=== PATIENT | male | born 1970 | race Caucasian/White ===

== ENCOUNTER 2024-09-30 09:20 | Day surgery (SDC) | payer BC ==
[2024-09-26 09:39] LABS: BASOPHILS % (AUTO) 0.2 % (0-1); EOSINOPHILS # (AUTO) 0.1 X10'3 (0-0.9); EOSINOPHILS % (AUTO) 1.3 % (0-6); HEMOGLOBIN 15.6 g/dl (14.0-17.9); LYMPHOCYTES # (AUTO) 1.6 X10'3 (1.1-4.8); LYMPHOCYTES % (AUTO) 38.6 % (21-51); MEAN CORPUSCULAR HEMOGLOBIN 31.7 PG (27.0-31.0); MEAN CORPUSCULAR HGB CONC 35.4 g/dL (33.0-36.5); MEAN CORPUSCULAR VOLUME 89.4 FL (78-98); MEAN PLATELET VOLUME 6.7 FL (7.4-10.4); MONOCYTES # (AUTO) 0.4 X10'3 (0-0.9); MONOCYTES % (AUTO) 9.2 % (2-12); NEUTROPHILS # (AUTO) 2.1 X10'3 (1.8-7.7); NEUTROPHILS % (AUTO) 50.7 % (42-75); PLATELET COUNT 178 X10'3 (140-440); RED BLOOD COUNT 4.92 X10'6 (4.70-6.10); RED CELL DISTRIBUTION WIDTH 12.7 % (11.5-14.5); WHITE BLOOD COUNT 4.2 X10'3 (4.5-11.0)
[2024-09-26 09:49] LABS: ANION GAP 3 (8-16); APTT 28 SECONDS (22-32); BLOOD UREA NITROGEN 14 MG/DL (7-18); BUN/CREATININE RATIO 13.6 (10.0-20.0); CALCIUM 8.4 MG/DL (8.5-10.1); CHLORIDE 103 MMOL/L (99-107); CHOL/HDL RATIO 4.6 (0.00-4.99); CHOLESTEROL 175 MG/DL (0-200); CREATININE 1.03 MG/DL (0.60-1.10); GLUCOSE 91 MG/DL (70-104); HDL CHOLESTEROL 38 MG/DL (35-60); LDL CHOLESTEROL 115 MG/DL (50-100); PROTHROMBIN TIME 10.7 SECONDS (9.0-12.0); SODIUM 137 MMOL/L (135-145); TOTAL CARBON DIOXIDE 30.6 MMOL/L (24-32); TRIGLYCERIDES 130 MG/DL (20-135); eGFR 76 ML/MIN
[2024-09-30] VITALS (10 sets, daily range): BP systolic 110–122; BP diastolic 75–89; PULSE 80–100; RESP 14–18; TEMP 98.6; O2SAT 20–99
[~2024-09-30] VITALS: Ht 170.2 cm; Wt 90.6 kg
[2024-09-30] MEDS ORDERED: diphenhydrAMINE 25mg capsule PO ONE (09:45)
[2024-09-30] MEDS ORDERED: ROSU20TA98 PO (09:54)
[2024-09-30] MEDS ORDERED: METO25TA6 PO (09:54)
[2024-09-30] MEDS ORDERED: IBUP-2697 PO (10:01)
[2024-09-30] MEDS ORDERED: NITR0.4T48 SL (10:01)
[2024-09-30] MEDS ORDERED: ASPI-1265 PO (10:01)
[2024-09-30] MEDS ORDERED: ACET-1008 PO (10:01)
[2024-09-30] MEDS ORDERED: LIDOcaine 1% (10mg/ml) 2ml vial ONE (11:58)
[2024-09-30] MEDS ORDERED: verapamil 2.5 mg/ml inj IV ONE (11:58)
[2024-09-30] MEDS ORDERED: nitroGLYCERIN 500mcg/5mL D5W 5 ML IV ONE (11:59)
[2024-09-30] MEDS ORDERED: midazolam 1 mg/ML 2ml injection ONE (11:59)
[2024-09-30] MEDS ORDERED: iohexol 350MG/ML 100ml bottle IV ONE (11:59)
[2024-09-30] MEDS ORDERED: fentaNYL/PF 50MCG/1 ML 2ML syringe ONE (11:59)
[2024-09-30] MEDS ORDERED: heparin 1,000unit/ml 10ml vial 10 ML ONE (11:59)
[2024-09-30] MEDS: normal saline 1000ml 1,000 ML IV SCH (12:16)
[2024-09-30] MEDS: LORazepam 0.5 MG tablet PO ONE (12:16)
[2024-09-30] MEDS ORDERED: iohexol 350 MG/ML 50ML vial IV ONE (12:58)
[2024-09-30] MEDS ORDERED: HYDROcodone/acetaminophen 5mg/325mg tablet PO PRN (13:40)
[2024-09-30] MEDS ORDERED: HYDROcodone/acetaminophen 10/325mg tab PO PRN (13:40)
== END 2024-09-30 16:25 | disposition home or self-care (01) ==
LOC: SSTAY O 09:20
PROVIDERS: ATTEND Student in an Organized Health Care Education/Training Program
DX: R94.39 Abnormal result of other cardiovascular function study (principal); I25.110 Atherosclerotic heart disease of native coronary artery with unstable angina pectoris; I25.82 Chronic total occlusion of coronary artery; I35.0 Nonrheumatic aortic (valve) stenosis; I10 Essential (primary) hypertension; E78.00 Pure hypercholesterolemia, unspecified; Z79.1 Long term (current) use of non-steroidal anti-inflammatories (NSAID); Z79.899 Other long term (current) drug therapy; Z79.82 Long term (current) use of aspirin; Z79.01 Long term (current) use of anticoagulants
CPT/HCPCS: 36415; 80048; 80061; 85025; 85610; 85730; 93005; 93458; J1644; J2003; J2250; J3010; J3490; J7030; Q9967; 99152; A6258; A6402; C1894

== ENCOUNTER 2024-10-24 05:38 | Inpatient (IN) | payer BC ==
[2024-10-22 12:52] VITALS: PULSE 105; RESP 16; O2SAT 98
[2024-10-22 14:58] LABS: BILIRUBIN,URINE NEGATIVE (Neg); CLARITY,URINE CLEAR (Clear); COLOR,URINE YELLOW (Yellow); GLUCOSE, URINE 100 mg/dl (Neg); KETONES,URINE NEGATIVE (Neg); LEUKOCYTE ESTERASE ,URINE NEGATIVE (Neg); NITRITES, URINE NEGATIVE (Neg); OCCULT BLOOD,URINE NEGATIVE (Neg); PH,URINE 6.5 (4.8-8.0); PROTEIN,URINE NEGATIVE (Neg); UROBILINOGEN,URINE 0.2 E.U/dL (0.2-1.0)
[2024-10-22 15:07] LABS: UA COLLECTION TYPE CLN CATCH MIDSTREAM
[2024-10-22 15:28] LABS: ABG BASE EXCESS -2.4 mmol/L (-2.0-3.0); ABG HCO3 20.9 mmol/L (21.0-28.0); ABG OXYGEN SATURATION 97.1 % (94.0-98.0); ABG PCO2 (T) 32.9 mmHg (35.0-48.0); ABG PH (T) 7.421 (7.350-7.450); ABG PO2 (T) 89.5 mmHg (83.0-108.0); ALLEN'S TEST POSITIVE; FCOHb 0.3 % (0.5-1.5); FHHb 2.9 % (0.0-5.0); FMetHb 0.1 % (0.0-1.5); FO2Hb 96.7 % (94.0-98.0); MODE ROOM AIR; TOTAL HEMOGLOBIN 17.3 G/dl (13.5-17.5)
[2024-10-22 15:32] LABS: BASOPHILS % (AUTO) 0.4 % (0-1); EOSINOPHILS % (AUTO) 0.4 % (0-6); LYMPHOCYTES # (AUTO) 1.6 X10'3 (1.1-4.8); LYMPHOCYTES % (AUTO) 21.7 % (21-51); MEAN CORPUSCULAR HGB CONC 34.1 g/dL (33.0-36.5); MEAN CORPUSCULAR VOLUME 90.9 FL (78-98); MEAN PLATELET VOLUME 7.3 FL (7.4-10.4); MONOCYTES # (AUTO) 0.5 X10'3 (0-0.9); MONOCYTES % (AUTO) 7.3 % (2-12); NEUTROPHILS # (AUTO) 5.2 X10'3 (1.8-7.7); NEUTROPHILS % (AUTO) 70.2 % (42-75); PRE OP HEMATOCRIT 47.7 % (42.0-52.0); PRE OP HEMOGLOBIN 16.3 g/dL (14.0-17.9); PRE OP PLATELET COUNT 192 X10'3 (140-440); PRE OP WHITE BLOOD COUNT 7.5 10'3 (4.8-10.8); RED BLOOD COUNT 5.25 X10'6 (4.70-6.10); RED CELL DISTRIBUTION WIDTH 13.2 % (11.5-14.5)
[2024-10-22 15:42] LABS: PRE OP INR 1.1 INR
[2024-10-22 15:55] LABS: ALBUMIN 4.4 G/DL (3.4-5.0); ALBUMIN/GLOBULIN RATIO 1.2 (1.1-1.5); ALKALINE PHOSPHATASE 83 IU/L (46-116); BLOOD UREA NITROGEN 19 MG/DL (7-18); BUN/CREATININE RATIO 18.8 (10.0-20.0); CHLORIDE 102 MMOL/L (99-107); CREATININE 1.01 MG/DL (0.60-1.10); PRE OP ALT 61 U/L (30-65); PRE OP ANION GAP 8 (8-16); PRE OP AST 26 U/L (10-37); PRE OP BILIRUB, TOTAL 0.6 MG/DL (0.0-1.0); PRE OP GLUCOSE 93 MG/DL (70-104); PRE OP POTASSIUM 3.9 MMOL/L (3.4-5.1); PRE OP SODIUM 139 MMOL/L (135-145); TOTAL CARBON DIOXIDE 28.7 MMOL/L (24-32); TOTAL PROTEIN 8.1 G/DL (6.4-8.2); eGFR 78 ML/MIN
[2024-10-22 15:59] LABS: HEMOGLOBIN A1C 5.2 % (4.5-6.2)
[2024-10-22] MEDS: DOCUMENT DATE & TIME OF BETA-BLOCKER PO ONE (21:00)
[2024-10-24] VITALS (17 sets, daily range): BP systolic 89–138; BP diastolic 52–87; PULSE 71–93; RESP 12–20; O2SAT 96–99
[~2024-10-24] VITALS: Ht 170.2 cm; Wt 99.3 kg
[~2024-10-24 05:38] MED LIST: ASPI-1265 PO; Insulin Reg/NS 100units/100mL 100 ML IV SCH; METO25TA6 PO; ROSU20TA98 PO; dextrose 50%-water 50ml dispensing syringe IV PRN; insulin glargine (Lantus) pen - multi-dose SQ PRN
[2024-10-24] MEDS ORDERED: BUPIVAcaine 2.5mg/ml inj 50ml vial (contains preservative) ONE (06:40)
[2024-10-24] MEDS ORDERED: ceFAZolin 1000mg inj ONE (06:40)
[2024-10-24] MEDS ORDERED: gelatin sponge, absorbable (Gelfoam 100) sponge TP ONE (06:41)
[2024-10-24] MEDS: ringers solution, lacted 1,000 ML IV SCH (06:47)
[2024-10-24] MEDS: famotidine 20mg tablet PO ONE (06:48)
[2024-10-24] MEDS: VANCOMYCIN/H2O 1.5g/300mL PB 300 ML IV ONE (06:48)
[2024-10-24] MEDS: metoprolol tartrate 12.5mg (1/2 tablet) PO ONE (06:54)
[2024-10-24] MEDS: BUPIVAcaine/PF 2.5 mg/ml (0.25%) 30ml vial IJ ONE (07:00)
[2024-10-24] MEDS ORDERED: fentaNYL /PF 50mcg/ml 5ml ampule ONE ×3 (07:46)
[2024-10-24] MEDS ORDERED: MIDAZolam 1mg/ml 10ml vial ONE (07:46)
[2024-10-24] MEDS ORDERED: LIDOcaine 1%/PF 5ML 10 MG/ML VIAL ONE (07:47)
[2024-10-24] MEDS ORDERED: propofol inj 20 ML IV ONE (07:47)
[2024-10-24] MEDS ORDERED: rocuronium 10mg/ml inj IV ONE ×6 (07:47→14:09)
[2024-10-24] MEDS: LORazepam 2 mg/ml vial IV ONE (07:58)
[2024-10-24] MEDS: mupirocin 2% ointment 22GM NS SCH (08:00)
[2024-10-24] MEDS ORDERED: sevoflurane 250ml liquid IH ONE (08:08)
[2024-10-24] MEDS: ceFAZolin inj. 3,000 MG in normal saline 100ml IV soln 100 ML IV ONE (08:09)
[2024-10-24 08:57] LABS: ABG BASE EXCESS -0.6 mmol/L (-2.0-3.0); ABG HCO3 21.4 mmol/L (21.0-28.0); ABG OXYGEN SATURATION 98.4 % (94.0-98.0); ABG PCO2 28.6 mmHg (35.0-48.0); ABG PH 7.492 (7.350-7.450); ABG PO2 123.2 mmHg (83.0-108.0); CL (ABG) 103 mmol/L (98-107); FCOHb 0.1 % (0.5-1.5); FHHb 1.6 % (0.0-5.0); FMetHb 0.2 % (0.0-1.5); FO2Hb 98.1 % (94.0-98.0); GLUCOSE (ABG) 118 mg/dl (65-95); IONIZED CA (ABG) 1.12 mmol/L (1.15-1.33); K (ABG) 3.9 mmol/L (3.40-4.50); TOTAL HEMOGLOBIN 14.4 G/dl (13.5-17.5)
[2024-10-24 10:24] LABS: ABG BASE EXCESS VENOUS -12.9 mmol/L (-2.0-3.0); ABG HCO3 VENOUS 12.1 mmol/L (22.0-29.0); ABG PCO2 VENOUS 24.7 mmHg (38.0-54.0); ABG PH (VENOUS) 7.307 (7.320-7.430); CL (ABG) 103 mmol/L (98-107); FHHb VENOUS 24.9 %; FMetHb VENOUS 0.4 % (0.5-1.5); FO2Hb VENOUS 74.7 % (0-80.0); IONIZED CA (ABG) 1.05 mmol/L (1.15-1.33); K (ABG) 4.2 mmol/L (3.40-4.50); TOTAL HEMOGLOBIN 7.9 G/dl (13.5-17.5)
[2024-10-24 11:32] LABS: ABG BASE EXCESS -1.3 mmol/L (-2.0-3.0); ABG HCO3 23.5 mmol/L (21.0-28.0); ABG OXYGEN SATURATION 97.4 % (94.0-98.0); ABG PCO2 39.8 mmHg (35.0-48.0); ABG PH 7.389 (7.350-7.450); ABG PO2 104.9 mmHg (83.0-108.0); CL (ABG) 100 mmol/L (98-107); FCOHb 0.3 % (0.5-1.5); FHHb 2.6 % (0.0-5.0); FO2Hb 97.1 % (94.0-98.0); GLUCOSE (ABG) 136 mg/dl (65-95); TOTAL HEMOGLOBIN 10.5 G/dl (13.5-17.5)
[2024-10-24 12:00] LABS: ABG BASE EXCESS -2.6 mmol/L (-2.0-3.0); ABG HCO3 23.4 mmol/L (21.0-28.0); ABG PCO2 45.1 mmHg (35.0-48.0); ABG PH 7.332 (7.350-7.450); CL (ABG) 100 mmol/L (98-107); FCOHb 0.2 % (0.5-1.5); FHHb 23.1 % (0.0-5.0); FMetHb 0.1 % (0.0-1.5); FO2Hb 76.6 % (94.0-98.0); GLUCOSE (ABG) 164 mg/dl (65-95); IONIZED CA (ABG) 1.02 mmol/L (1.15-1.33); TOTAL HEMOGLOBIN 11.4 G/dl (13.5-17.5)
[2024-10-24] MEDS ORDERED: epiNEPHrine 1 mg/ml inj ONE (12:14)
[2024-10-24 12:52] LABS: ABG BASE EXCESS -7.1 mmol/L (-2.0-3.0); ABG HCO3 19.2 mmol/L (21.0-28.0); ABG OXYGEN SATURATION 96.7 % (94.0-98.0); ABG PCO2 41.9 mmHg (35.0-48.0); ABG PO2 100.3 mmHg (83.0-108.0); CL (ABG) 102 mmol/L (98-107); FCOHb 0.3 % (0.5-1.5); FHHb 3.3 % (0.0-5.0); FMetHb 0.3 % (0.0-1.5); FO2Hb 96.1 % (94.0-98.0); GLUCOSE (ABG) 191 mg/dl (65-95); IONIZED CA (ABG) 1.05 mmol/L (1.15-1.33); K (ABG) 4.9 mmol/L (3.40-4.50); TOTAL HEMOGLOBIN 11.5 G/dl (13.5-17.5)
[2024-10-24 13:04] LABS: ABG BASE EXCESS -0.4 mmol/L (-2.0-3.0); ABG HCO3 25.3 mmol/L (21.0-28.0); ABG OXYGEN SATURATION 97.1 % (94.0-98.0); ABG PCO2 45.8 mmHg (35.0-48.0); ABG PO2 101.8 mmHg (83.0-108.0); CL (ABG) 101 mmol/L (98-107); FCOHb 0.3 % (0.5-1.5); FHHb 2.9 % (0.0-5.0); FMetHb 0.3 % (0.0-1.5); FO2Hb 96.5 % (94.0-98.0); GLUCOSE (ABG) 213 mg/dl (65-95); IONIZED CA (ABG) 0.97 mmol/L (1.15-1.33); K (ABG) 4.6 mmol/L (3.40-4.50); TOTAL HEMOGLOBIN 10.9 G/dl (13.5-17.5)
[2024-10-24 13:27] LABS: ABG BASE EXCESS -2.6 mmol/L (-2.0-3.0); ABG HCO3 21.4 mmol/L (21.0-28.0); ABG OXYGEN SATURATION 99.1 % (94.0-98.0); ABG PCO2 34.3 mmHg (35.0-48.0); ABG PH 7.413 (7.350-7.450); ABG PO2 257.9 mmHg (83.0-108.0); CL (ABG) 102 mmol/L (98-107); FCOHb 0.3 % (0.5-1.5); FHHb 0.9 % (0.0-5.0); FMetHb 0.3 % (0.0-1.5); FO2Hb 98.5 % (94.0-98.0); GLUCOSE (ABG) 216 mg/dl (65-95); K (ABG) 4.5 mmol/L (3.40-4.50); TOTAL HEMOGLOBIN 11.1 G/dl (13.5-17.5)
[2024-10-24 13:48] LABS: ABG BASE EXCESS -2.1 mmol/L (-2.0-3.0); ABG HCO3 23.3 mmol/L (21.0-28.0); ABG OXYGEN SATURATION 99.1 % (94.0-98.0); ABG PCO2 42.4 mmHg (35.0-48.0); ABG PH 7.358 (7.350-7.450); CL (ABG) 101 mmol/L (98-107); FCOHb 0.3 % (0.5-1.5); FHHb 0.9 % (0.0-5.0); FMetHb 0.3 % (0.0-1.5); FO2Hb 98.5 % (94.0-98.0); GLUCOSE (ABG) 206 mg/dl (65-95); IONIZED CA (ABG) 1.15 mmol/L (1.15-1.33); K (ABG) 4.4 mmol/L (3.40-4.50); TOTAL HEMOGLOBIN 10.3 G/dl (13.5-17.5)
[2024-10-24 14:28] LABS: ABG BASE EXCESS -4.6 mmol/L (-2.0-3.0); ABG HCO3 22.2 mmol/L (21.0-28.0); ABG OXYGEN SATURATION 98.8 % (94.0-98.0); ABG PCO2 48.6 mmHg (35.0-48.0); ABG PH 7.278 (7.350-7.450); ABG PO2 261.2 mmHg (83.0-108.0); CL (ABG) 102 mmol/L (98-107); FCOHb 0.1 % (0.5-1.5); FHHb 1.2 % (0.0-5.0); FMetHb 0.3 % (0.0-1.5); FO2Hb 98.4 % (94.0-98.0); GLUCOSE (ABG) 190 mg/dl (65-95); IONIZED CA (ABG) 1.18 mmol/L (1.15-1.33); K (ABG) 5.1 mmol/L (3.40-4.50); TOTAL HEMOGLOBIN 10.9 G/dl (13.5-17.5)
[2024-10-24 14:41] LABS: ABG BASE EXCESS -2.9 mmol/L (-2.0-3.0); ABG HCO3 22.8 mmol/L (21.0-28.0); ABG OXYGEN SATURATION 99.1 % (94.0-98.0); ABG PCO2 43.4 mmHg (35.0-48.0); ABG PH 7.338 (7.350-7.450); ABG PO2 274.7 mmHg (83.0-108.0); CL (ABG) 102 mmol/L (98-107); FCOHb 0.3 % (0.5-1.5); FHHb 0.9 % (0.0-5.0); FMetHb 0.3 % (0.0-1.5); FO2Hb 98.5 % (94.0-98.0); GLUCOSE (ABG) 187 mg/dl (65-95); IONIZED CA (ABG) 1.15 mmol/L (1.15-1.33); K (ABG) 4.5 mmol/L (3.40-4.50); TOTAL HEMOGLOBIN 10.7 G/dl (13.5-17.5)
[2024-10-24 15:08] LABS: ABG BASE EXCESS -0.8 mmol/L (-2.0-3.0); ABG HCO3 23.5 mmol/L (21.0-28.0); ABG OXYGEN SATURATION 99.1 % (94.0-98.0); ABG PCO2 37.3 mmHg (35.0-48.0); ABG PH 7.417 (7.350-7.450); ABG PO2 200.2 mmHg (83.0-108.0); CL (ABG) 103 mmol/L (98-107); FCOHb 0.4 % (0.5-1.5); FHHb 0.9 % (0.0-5.0); FMetHb 0.3 % (0.0-1.5); FO2Hb 98.4 % (94.0-98.0); GLUCOSE (ABG) 180 mg/dl (65-95); K (ABG) 4.6 mmol/L (3.40-4.50); TOTAL HEMOGLOBIN 10.6 G/dl (13.5-17.5)
[2024-10-24 15:50] LABS: ABG BASE EXCESS VENOUS -1.5 mmol/L (-2.0-3.0); ABG HCO3 VENOUS 24.3 mmol/L (22.0-29.0); ABG PCO2 VENOUS 45.7 mmHg (38.0-54.0); ABG PH (VENOUS) 7.344 (7.320-7.430); ABG PO2 VENOUS 44.1 mmHg (23.0-48.0); CL (ABG) 102 mmol/L (98-107); FCOHb VENOUS 0.5 % (0.5-1.5); FHHb VENOUS 21.9 %; FMetHb VENOUS 0.1 % (0.5-1.5); FO2Hb VENOUS 77.5 % (0-80.0); GLUCOSE (ABG) 162 mg/dl (65-95); IONIZED CA (ABG) 1.18 mmol/L (1.15-1.33); K (ABG) 4.4 mmol/L (3.40-4.50); TOTAL HEMOGLOBIN 11.6 G/dl (13.5-17.5)
[2024-10-24 15:54] LABS: ACTIVATED CLOTTING TIME 127 SEC (101-148)
[2024-10-24] MEDS ORDERED: potassium Cl 40MEQ/270ML bag 250 ML IV PRN (16:50)
[2024-10-24] MEDS ORDERED: magnesium sulf-water 2g/50mL 50 ML IV PRN (16:50)
[2024-10-24] MEDS ORDERED: potassium Cl 20 mEq SR tablet PO PRN (16:50)
[2024-10-24] MEDS ORDERED: acetaminophen 325mg tablet PO PRN ×2 (16:50)
[2024-10-24] MEDS ORDERED: insulin glargine (Lantus) pen - multi-dose SQ PRN (16:50)
[2024-10-24] MEDS ORDERED: mineral oil 133ml enema RC PRN (16:50)
[2024-10-24] MEDS ORDERED: magnesium sulf-water 4G/100mL 100 ML IV PRN (16:50)
[2024-10-24] MEDS ORDERED: potassium CL 10mEq/100ml bag 100 ML IV PRN (16:50)
[2024-10-24] MEDS ORDERED: dextrose 50%-water 50ml dispensing syringe IV PRN (16:50)
[2024-10-24] MEDS ORDERED: Neutra Phos packet PO PRN (16:50)
[2024-10-24] MEDS ORDERED: bisacodyl 10mg suppository rectal RC PRN (16:50)
[2024-10-24] MEDS ORDERED: nitroGLYCERIN-Tridil 50MG/D5W 250 ML IV PRN (16:50)
[2024-10-24] MEDS ORDERED: potassium Cl 40MEQ/1/2NS 520ml 520 ML IV PRN (16:50)
[2024-10-24] MEDS ORDERED: normal saline 250ml IV soln 250 ML IV PRN (16:50)
[2024-10-24] MEDS ORDERED: sodium phosphate inj. 30 MMOL in dextrose 5%-water 250 ML IV PRN (16:50)
[2024-10-24] MEDS ORDERED: metoclopramide 5 mg/ml inj IV PRN (16:50)
[2024-10-24] MEDS ORDERED: sodium phosphate inj. 15 MMOL in dextrose 5%-water 250 ML IV PRN (16:50)
[2024-10-24] MEDS ORDERED: potassium Cl 20mEq/100mL bag 100 ML IV PRN (16:50)
[2024-10-24] MEDS ORDERED: niCARDipine-NS 40mg/200ml IVPB 200 ML IV PRN (16:50)
[2024-10-24 17:10] LABS: ABG BASE EXCESS -4.9 mmol/L (-2.0-3.0); ABG HCO3 19.7 mmol/L (21.0-28.0); ABG OXYGEN SATURATION 99.7 % (94.0-98.0); ABG PCO2 (T) 33.5 mmHg (35.0-48.0); ABG PH (T) 7.381 (7.350-7.450); ABG PO2 (T) 306.1 mmHg (83.0-108.0); ALLEN'S TEST POSITIVE; FCOHb 0.8 % (0.5-1.5); FHHb 0.3 % (0.0-5.0); FO2Hb 98.9 % (94.0-98.0); PATIENT TEMPERATURE 35.6; PEEP 5 cm H2O; RESPIRATORY RATE 12 b/min; TIDAL VOLUME 700 mL
[2024-10-24 17:33] LABS: BASOPHILS % (AUTO) 0.1 % (0-1); EOSINOPHILS % (AUTO) 0.1 % (0-6); HEMATOCRIT 42.8 % (42.0-52.0); HEMOGLOBIN 14.7 g/dl (14.0-17.9); LYMPHOCYTES # (AUTO) 1.5 X10'3 (1.1-4.8); MEAN CORPUSCULAR HGB CONC 34.3 g/dL (33.0-36.5); MEAN CORPUSCULAR VOLUME 90.3 FL (78-98); MEAN PLATELET VOLUME 6.9 FL (7.4-10.4); MONOCYTES # (AUTO) 0.9 X10'3 (0-0.9); MONOCYTES % (AUTO) 4.3 % (2-12); NEUTROPHILS # (AUTO) 19.3 X10'3 (1.8-7.7); NEUTROPHILS % (AUTO) 88.5 % (42-75); RED BLOOD COUNT 4.74 X10'6 (4.70-6.10); RED CELL DISTRIBUTION WIDTH 13.5 % (11.5-14.5); WHITE BLOOD COUNT 21.8 X10'3 (4.5-11.0)
[2024-10-24 17:48] LABS: APTT 26 SECONDS (22-32); FIBRINOGEN 178 MG/DL (177-424); INR 1.2 INR; PROTHROMBIN TIME 12.4 SECONDS (9.0-12.0)
[2024-10-24 17:51] LABS: PLATELET COUNT 98 X10'3 (140-440)
[2024-10-24 17:52] LABS: ALANINE AMINOTRANSFERASE 46 U/L (12-78); ALBUMIN 3.1 G/DL (3.4-5.0); ALBUMIN/GLOBULIN RATIO 1.5 (1.1-1.5); ALKALINE PHOSPHATASE 50 IU/L (46-116); ANION GAP 8 (8-16); BILIRUBIN,TOTAL 1.9 MG/DL (0.1-1.0); BLOOD UREA NITROGEN 13 MG/DL (7-18); BUN/CREATININE RATIO 11.2 (10.0-20.0); CALCIUM 8.1 MG/DL (8.5-10.1); CHLORIDE 108 MMOL/L (99-107); CREATININE 1.16 MG/DL (0.60-1.10); GLUCOSE 154 MG/DL (70-104); SODIUM 143 MMOL/L (135-145); TOTAL CARBON DIOXIDE 26.9 MMOL/L (24-32); TOTAL PROTEIN 5.2 G/DL (6.4-8.2); eCRCL 70 ML/MIN; eGFR 66 ML/MIN
[2024-10-24 17:56] LABS: MAGNESIUM 3.9 MG/DL (1.5-2.4)
[2024-10-24 17:58] LABS: ASPARTATE AMINO TRANSFERASE 75 U/L (10-37); PHOSPHORUS 2.5 MG/DL (2.3-4.5); POTASSIUM 4.8 MMOL/L (3.5-5.1)
[2024-10-24] MEDS: albumin (Human) 5% 250ml 250 ML IV PRN (18:27)
[2024-10-24] MEDS: ondansetron/PF 4mg/2ml inj IV PRN (18:27)
[2024-10-24] MEDS: morphine 2 MG/ML inj. syringe IV PRN (18:28)
[2024-10-24] MEDS: sodium chloride 0.45% 1,000 ML IV SCH (18:29)
[2024-10-24] MEDS: Insulin Reg/NS 100units/100mL 100 ML IV SCH (18:37)
[2024-10-24] MEDS: NORepinephrine 8mg/ 250ml NS 250 ML IV PRN (19:32)
[2024-10-24] MEDS: dexmedetomidin/NS 400mcg/100ml 100 ML IV PRN (19:38)
[2024-10-24] MEDS: vancomycin/NS 1 GM ADD-VANTAGE 250 ML IV SCH (19:38)
[2024-10-24] MEDS: atorvastatin 10mg tablet PO SCH (19:39)
[2024-10-24] MEDS: mupirocin 2% nasal ointment 1gm UD NS SCH (19:39)
[2024-10-24] MEDS: sennosides/docusate sodium tablet PO SCH (19:39)
[2024-10-24] MEDS ORDERED: VANCOMYCIN 1GM 200ML H20 (PEG) 200 ML IV SCH (20:00)
[2024-10-24] MEDS ORDERED: gabapentin 300mg capsule PO SCH (21:00)
[2024-10-24 21:46] LABS: ABG HCO3 19.9 mmol/L (21.0-28.0); ABG OXYGEN SATURATION 98.5 % (94.0-98.0); ABG PH (T) 7.399 (7.350-7.450); ABG PO2 (T) 123.5 mmHg (83.0-108.0); FCOHb 0.5 % (0.5-1.5); FHHb 1.5 % (0.0-5.0); FMetHb 0.3 % (0.0-1.5); FO2Hb 97.7 % (94.0-98.0); MODE SPONT; PEEP 5 cm H2O; TOTAL HEMOGLOBIN 13.1 G/dl (13.5-17.5)
[2024-10-24 23:20] LABS: BASOPHILS % (AUTO) 0.1 % (0-1); EOSINOPHILS % (AUTO) 0 % (0-6); HEMATOCRIT 36.7 % (42.0-52.0); HEMOGLOBIN 12.7 g/dl (14.0-17.9); LYMPHOCYTES # (AUTO) 0.7 X10'3 (1.1-4.8); LYMPHOCYTES % (AUTO) 4.1 % (21-51); MEAN CORPUSCULAR HEMOGLOBIN 31.5 PG (27.0-31.0); MEAN CORPUSCULAR HGB CONC 34.6 g/dL (33.0-36.5); MEAN CORPUSCULAR VOLUME 91.2 FL (78-98); MEAN PLATELET VOLUME 7.2 FL (7.4-10.4); MONOCYTES # (AUTO) 0.6 X10'3 (0-0.9); MONOCYTES % (AUTO) 3.5 % (2-12); NEUTROPHILS % (AUTO) 92.3 % (42-75); PLATELET COUNT 86 X10'3 (140-440); RED BLOOD COUNT 4.02 X10'6 (4.70-6.10); RED CELL DISTRIBUTION WIDTH 13.3 % (11.5-14.5); WHITE BLOOD COUNT 17.3 X10'3 (4.5-11.0)
[2024-10-25] VITALS (24 sets, daily range): BP systolic 96–118; BP diastolic 52–67; PULSE 66–98; RESP 12–18; O2SAT 94–99
[2024-10-25] MEDS: ceFAZolin/D5W- 1GM premix 50 ML IV SCH (00:07)
[2024-10-25 00:26] LABS: ALBUMIN 3.5 G/DL (3.4-5.0); ANION GAP 8 (8-16); BLOOD UREA NITROGEN 14 MG/DL (7-18); BUN/CREATININE RATIO 10.9 (10.0-20.0); CHLORIDE 111 MMOL/L (99-107); CREATININE 1.28 MG/DL (0.60-1.10); GLUCOSE 139 MG/DL (70-104); MAGNESIUM 2.8 MG/DL (1.5-2.4); PHOSPHORUS 1.6 MG/DL (2.3-4.5); POTASSIUM 4.8 MMOL/L (3.5-5.1); SODIUM 145 MMOL/L (135-145); TOTAL CARBON DIOXIDE 26.1 MMOL/L (24-32); eCRCL 63 ML/MIN; eGFR 59 ML/MIN
[2024-10-25] MEDS: sodium phosphate inj. 15 MMOL in normal saline 250ml IV soln 250 ML IV PRN (01:29)
[2024-10-25] MEDS: morphine 4 MG/ML inj SYRINge IV PRN (02:29)
[2024-10-25] MEDS: HYDROcodone/acetaminophen 10/325mg tab PO PRN (05:26)
[2024-10-25 05:57] LABS: BASOPHILS % (AUTO) 0.1 % (0-1); EOSINOPHILS % (AUTO) 0.1 % (0-6); HEMOGLOBIN 11.4 g/dl (14.0-17.9); LYMPHOCYTES # (AUTO) 0.8 X10'3 (1.1-4.8); LYMPHOCYTES % (AUTO) 4.5 % (21-51); MEAN CORPUSCULAR HEMOGLOBIN 31.3 PG (27.0-31.0); MEAN CORPUSCULAR HGB CONC 34.5 g/dL (33.0-36.5); MEAN CORPUSCULAR VOLUME 90.7 FL (78-98); MEAN PLATELET VOLUME 7.5 FL (7.4-10.4); MONOCYTES # (AUTO) 0.6 X10'3 (0-0.9); MONOCYTES % (AUTO) 3.1 % (2-12); NEUTROPHILS # (AUTO) 16.9 X10'3 (1.8-7.7); NEUTROPHILS % (AUTO) 92.2 % (42-75); PLATELET COUNT 79 X10'3 (140-440); RED BLOOD COUNT 3.64 X10'6 (4.70-6.10); RED CELL DISTRIBUTION WIDTH 13.2 % (11.5-14.5); WHITE BLOOD COUNT 18.4 X10'3 (4.5-11.0)
[2024-10-25 06:08] LABS: APTT 26 SECONDS (22-32); INR 1.1 INR; PROTHROMBIN TIME 11.5 SECONDS (9.0-12.0)
[2024-10-25 06:41] LABS: ALANINE AMINOTRANSFERASE 36 U/L (12-78); ALBUMIN 3.5 G/DL (3.4-5.0); ALBUMIN/GLOBULIN RATIO 1.9 (1.1-1.5); ALKALINE PHOSPHATASE 37 IU/L (46-116); ANION GAP 10 (8-16); ASPARTATE AMINO TRANSFERASE 87 U/L (10-37); BLOOD UREA NITROGEN 15 MG/DL (7-18); BUN/CREATININE RATIO 12.7 (10.0-20.0); CALCIUM 7.7 MG/DL (8.5-10.1); CHLORIDE 110 MMOL/L (99-107); CREATININE 1.18 MG/DL (0.60-1.10); GLUCOSE 147 MG/DL (70-104); MAGNESIUM 2.4 MG/DL (1.5-2.4); PHOSPHORUS 3.1 MG/DL (2.3-4.5); POTASSIUM 4.9 MMOL/L (3.5-5.1); SODIUM 145 MMOL/L (135-145); TOTAL CARBON DIOXIDE 24.8 MMOL/L (24-32); TOTAL PROTEIN 5.3 G/DL (6.4-8.2); eCRCL 68 ML/MIN; eGFR 65 ML/MIN
[2024-10-25] MEDS ORDERED: glucagon, human recombinant 1mg kit SUBCUT PRN (08:00)
[2024-10-25] MEDS ORDERED: DEXTROSE 15 GM of carb/4 tabs (each vial/BOTTLE has 4 tablets) PO PRN ×2 (08:00)
[2024-10-25] MEDS ORDERED: dextrose 50%-water 50ml dispensing syringe IV PRN ×2 (08:00)
[2024-10-25] MEDS: acetaminophen 1,000mg/100ml IV 100 ML IV SCH (08:00)
[2024-10-25] MEDS: metoprolol tartrate 12.5mg (1/2 tablet) PO SCH (08:00)
[2024-10-25] MEDS: heparin, porcine 5000 units/ml vial SQ SCH (09:13)
[2024-10-25] MEDS: aspirin 81mg tab.chew PO SCH (09:13)
[2024-10-25] MEDS: INSULIN LISPRO 100 UNIT/ML INSULN.PEN MULTI-DOSE SQ SCH (12:00)
[2024-10-25] MEDS ORDERED: COMMUNICATION ORDER 1 EA MISC MC ONE (12:30)
[2024-10-25] MEDS: tamsulosin 0.4mg capsule PO SCH (19:52)
[2024-10-25] MEDS: warfarin 7.5mg tablet PO ONE (20:02)
[2024-10-26] VITALS (20 sets, daily range): BP systolic 101–131; BP diastolic 51–75; PULSE 82–102; RESP 13–20; TEMP 97.8–98.5; O2SAT 87–96
[2024-10-26 05:06] LABS: HEMOGLOBIN 10.2 g/dl (14.0-17.9)
[2024-10-26 05:07] LABS: BASOPHILS % (AUTO) 0.1 % (0-1); EOSINOPHILS # (AUTO) 0.1 X10'3 (0-0.9); EOSINOPHILS % (AUTO) 0.3 % (0-6); HEMATOCRIT 30.1 % (42.0-52.0); LYMPHOCYTES # (AUTO) 1.4 X10'3 (1.1-4.8); LYMPHOCYTES % (AUTO) 7.9 % (21-51); MEAN CORPUSCULAR HEMOGLOBIN 31.1 PG (27.0-31.0); MEAN CORPUSCULAR HGB CONC 33.8 g/dL (33.0-36.5); MEAN PLATELET VOLUME 7.7 FL (7.4-10.4); MONOCYTES # (AUTO) 0.8 X10'3 (0-0.9); MONOCYTES % (AUTO) 4.7 % (2-12); NEUTROPHILS # (AUTO) 15.3 X10'3 (1.8-7.7); PLATELET COUNT 69 X10'3 (140-440); RED BLOOD COUNT 3.27 X10'6 (4.70-6.10); RED CELL DISTRIBUTION WIDTH 13.4 % (11.5-14.5); WHITE BLOOD COUNT 17.6 X10'3 (4.5-11.0)
[2024-10-26 05:16] LABS: INR 1.1 INR
[2024-10-26 05:18] LABS: PROTHROMBIN TIME 11.6 SECONDS (9.0-12.0)
[2024-10-26 05:40] LABS: ALBUMIN 3.2 G/DL (3.4-5.0); ANION GAP 1 (8-16); BLOOD UREA NITROGEN 19 MG/DL (7-18); BUN/CREATININE RATIO 18.8 (10.0-20.0); CALCIUM 7.2 MG/DL (8.5-10.1); CHLORIDE 106 MMOL/L (99-107); CREATININE 1.01 MG/DL (0.60-1.10); GLUCOSE 159 MG/DL (70-104); MAGNESIUM 2.3 MG/DL (1.5-2.4); PHOSPHORUS 2.7 MG/DL (2.3-4.5); POTASSIUM 4.8 MMOL/L (3.5-5.1); SODIUM 138 MMOL/L (135-145); TOTAL CARBON DIOXIDE 31.3 MMOL/L (24-32); eCRCL 80 ML/MIN; eGFR 78 ML/MIN
[2024-10-26] MEDS: pantoprazole 40mg Tablet.DR PO SCH (08:42)
[2024-10-26] MEDS ORDERED: potassium CL 10mEq/100ml bag 100 ML IV PRN (10:20)
[2024-10-26] MEDS ORDERED: magnesium sulf-water 2g/50mL 50 ML IV PRN (10:20)
[2024-10-26] MEDS ORDERED: potassium Cl 20 mEq SR tablet PO PRN ×2 (10:20)
[2024-10-26] MEDS ORDERED: magnesium sulf-water 4G/100mL 100 ML IV PRN (10:20)
[2024-10-26] MEDS ORDERED: potassium Cl 40MEQ/270ML bag 250 ML IV PRN (10:20)
[2024-10-26] MEDS ORDERED: potassium Cl 20mEq/100mL bag 100 ML IV PRN (10:20)
[2024-10-26] MEDS ORDERED: potassium Cl 40MEQ/1/2NS 520ml 520 ML IV PRN (10:20)
[2024-10-26] MEDS ORDERED: JUVEN Smoothie Arginine/Glut./Ca2+Bmb (Juven 19.3pkt) 240ml cup PO SCH (12:30)
[2024-10-26] MEDS: magnesium Cl slow-release 64mg tablet PO SCH (19:44)
[2024-10-26] MEDS ORDERED: metoprolol tartrate 25mg tablet PO SCH (20:00)
[2024-10-26] MEDS: warfarin 5mg tablet PO ONE (20:21)
[2024-10-26] MEDS ORDERED: Melatonin 3mg tablet PO PRN (22:10)
[2024-10-27] VITALS (8 sets, daily range): BP systolic 99–138; BP diastolic 61–82; PULSE 79–120; RESP 12–22; TEMP 97.7–98.7; O2SAT 90–98
[2024-10-27] MEDS: diphenhydrAMINE 50 mg/ml inj IV ONE (01:40)
[2024-10-27] MEDS: HYDROcodone/acetaminophen 5mg/325mg tablet PO ONE (02:14)
[2024-10-27 07:31] LABS: INR 2.6 INR; PROTHROMBIN TIME 25.5 SECONDS (9.0-12.0)
[2024-10-27 07:32] LABS: ALBUMIN 3.3 G/DL (3.4-5.0); ANION GAP 4 (8-16); BLOOD UREA NITROGEN 19 MG/DL (7-18); BUN/CREATININE RATIO 19.8 (10.0-20.0); CHLORIDE 102 MMOL/L (99-107); CREATININE 0.96 MG/DL (0.60-1.10); GLUCOSE 131 MG/DL (70-104); MAGNESIUM 2.2 MG/DL (1.5-2.4); POTASSIUM 4.7 MMOL/L (3.5-5.1); SODIUM 138 MMOL/L (135-145); TOTAL CARBON DIOXIDE 31.9 MMOL/L (24-32); eCRCL 84 ML/MIN; eGFR 82 ML/MIN
[2024-10-27 07:33] LABS: BASOPHILS % (AUTO) 0.1 % (0-1); EOSINOPHILS % (AUTO) 0 % (0-6); HEMATOCRIT 27.7 % (42.0-52.0); HEMOGLOBIN 9.4 g/dl (14.0-17.9); LYMPHOCYTES # (AUTO) 0.9 X10'3 (1.1-4.8); LYMPHOCYTES % (AUTO) 6.7 % (21-51); MEAN CORPUSCULAR HEMOGLOBIN 31.2 PG (27.0-31.0); MEAN CORPUSCULAR HGB CONC 33.9 g/dL (33.0-36.5); MEAN CORPUSCULAR VOLUME 92.1 FL (78-98); MEAN PLATELET VOLUME 7.9 FL (7.4-10.4); MONOCYTES # (AUTO) 0.6 X10'3 (0-0.9); MONOCYTES % (AUTO) 4.2 % (2-12); NEUTROPHILS # (AUTO) 12.5 X10'3 (1.8-7.7); PLATELET COUNT 82 X10'3 (140-440); RED BLOOD COUNT 3.01 X10'6 (4.70-6.10); RED CELL DISTRIBUTION WIDTH 13.3 % (11.5-14.5)
[2024-10-27 07:57] LABS: GLUCOSE (ABG) 48 mg/dl (65-95)
[2024-10-27 07:58] LABS: K (ABG) 6.3 mmol/L (3.40-4.50)
[2024-10-27 07:58] LABS: ABG PO2 42.1 mmHg (83.0-108.0)
[2024-10-27 07:59] LABS: ABG OXYGEN SATURATION 76.8 % (94.0-98.0); K (ABG) 6.3 mmol/L (3.40-4.50)
[2024-10-27] MEDS: warfarin 5mg tablet PO ONE (21:18)
[2024-10-27] MEDS: magnesium hydroxide 30ml (MOM) UD suspension PO PRN (21:20)
[2024-10-28] VITALS (19 sets, daily range): BP systolic 97–125; BP diastolic 56–72; PULSE 93–133; RESP 12–18; TEMP 96.7–98.5; O2SAT 91–95
[2024-10-28 06:48] LABS: BASOPHILS % (AUTO) 0.1 % (0-1); EOSINOPHILS % (AUTO) 0 % (0-6); HEMATOCRIT 26.6 % (42.0-52.0); HEMOGLOBIN 9.2 g/dl (14.0-17.9); LYMPHOCYTES # (AUTO) 1.1 X10'3 (1.1-4.8); LYMPHOCYTES % (AUTO) 10.8 % (21-51); MEAN CORPUSCULAR HEMOGLOBIN 31.7 PG (27.0-31.0); MEAN CORPUSCULAR HGB CONC 34.4 g/dL (33.0-36.5); MEAN PLATELET VOLUME 7.7 FL (7.4-10.4); MONOCYTES # (AUTO) 0.5 X10'3 (0-0.9); MONOCYTES % (AUTO) 5.2 % (2-12); NEUTROPHILS # (AUTO) 8.4 X10'3 (1.8-7.7); NEUTROPHILS % (AUTO) 83.9 % (42-75); PLATELET COUNT 105 X10'3 (140-440); RED BLOOD COUNT 2.89 X10'6 (4.70-6.10); RED CELL DISTRIBUTION WIDTH 13.5 % (11.5-14.5); WHITE BLOOD COUNT 10.1 X10'3 (4.5-11.0)
[2024-10-28 06:59] LABS: ALBUMIN 3.3 G/DL (3.4-5.0); ANION GAP 6 (8-16); BLOOD UREA NITROGEN 18 MG/DL (7-18); CHLORIDE 100 MMOL/L (99-107); GLUCOSE 122 MG/DL (70-104); MAGNESIUM 2.1 MG/DL (1.5-2.4); POTASSIUM 4.2 MMOL/L (3.5-5.1); SODIUM 136 MMOL/L (135-145); TOTAL CARBON DIOXIDE 29.9 MMOL/L (24-32); eCRCL 90 ML/MIN; eGFR 89 ML/MIN
[2024-10-28 08:05] LABS: INR 5.6 INR
[2024-10-28] MEDS: acetaminophen 325mg tablet PO PRN (12:12)
[2024-10-28] MEDS: HYDROcodone/acetaminophen 10/325mg tab PO PRN (14:21)
[2024-10-28] MEDS: magnesium citrate 296ml oral solution PO ONE (16:25)
[2024-10-28] MEDS: gabapentin 300mg capsule PO PRN (16:38)
[2024-10-29] VITALS (12 sets, daily range): BP systolic 109–138; BP diastolic 68–72; PULSE 87–123; RESP 15–18; TEMP 97.3–97.6; O2SAT 91–97
[2024-10-29 06:29] LABS: BASOPHILS % (AUTO) 0.1 % (0-1); EOSINOPHILS % (AUTO) 0.5 % (0-6); HEMATOCRIT 26.4 % (42.0-52.0); HEMOGLOBIN 8.8 g/dl (14.0-17.9); LYMPHOCYTES # (AUTO) 1.5 X10'3 (1.1-4.8); LYMPHOCYTES % (AUTO) 18.2 % (21-51); MEAN CORPUSCULAR HEMOGLOBIN 31.2 PG (27.0-31.0); MEAN CORPUSCULAR HGB CONC 33.5 g/dL (33.0-36.5); MEAN CORPUSCULAR VOLUME 93.4 FL (78-98); MEAN PLATELET VOLUME 7.5 FL (7.4-10.4); MONOCYTES # (AUTO) 0.6 X10'3 (0-0.9); MONOCYTES % (AUTO) 6.8 % (2-12); NEUTROPHILS # (AUTO) 6.2 X10'3 (1.8-7.7); NEUTROPHILS % (AUTO) 74.4 % (42-75); PLATELET COUNT 146 X10'3 (140-440); RED BLOOD COUNT 2.83 X10'6 (4.70-6.10); RED CELL DISTRIBUTION WIDTH 13.4 % (11.5-14.5); WHITE BLOOD COUNT 8.4 X10'3 (4.5-11.0)
[2024-10-29 07:09] LABS: ANION GAP 4 (8-16); BLOOD UREA NITROGEN 19 MG/DL (7-18); BUN/CREATININE RATIO 22.9 (10.0-20.0); CHLORIDE 103 MMOL/L (99-107); CREATININE 0.83 MG/DL (0.60-1.10); GLUCOSE 115 MG/DL (70-104); MAGNESIUM 2.4 MG/DL (1.5-2.4); POTASSIUM 4.4 MMOL/L (3.5-5.1); SODIUM 139 MMOL/L (135-145); TOTAL CARBON DIOXIDE 32.2 MMOL/L (24-32); eCRCL 97 ML/MIN; eGFR > 90 ML/MIN
[2024-10-29] MEDS ORDERED: WARF-65 PO (09:26)
[2024-10-29] MEDS ORDERED: HYDR-3972 PO (09:26)
[2024-10-29] MEDS ORDERED: GABA-535 PO (09:26)
[2024-10-29] MEDS: folic acid/vitamin B complex w/vitamin C 0.8mg tablet PO SCH (10:45)
[2024-10-29] MEDS ORDERED: ferrous sulfate 325mg tablet PO SCH (12:30)
[2024-10-31 11:23] LABS: ALBUMIN 3.7 G/DL (3.4-5.0); ANION GAP 6 (8-16); BLOOD UREA NITROGEN 16 MG/DL (7-18); BUN/CREATININE RATIO 16.8 (10.0-20.0); CALCIUM 8.7 MG/DL (8.5-10.1); CHLORIDE 102 MMOL/L (99-107); CREATININE 0.95 MG/DL (0.60-1.10); GLUCOSE 90 MG/DL (70-104); POTASSIUM 4.3 MMOL/L (3.5-5.1); SODIUM 138 MMOL/L (135-145); TOTAL CARBON DIOXIDE 29.7 MMOL/L (24-32); eCRCL 85 ML/MIN; eGFR 83 ML/MIN
[2024-10-31 11:25] LABS: INR 1.4 INR; PROTHROMBIN TIME 14.7 SECONDS (9.0-12.0)
== END 2024-10-29 11:15 | disposition home health service (06) | DRG 221 ==
LOC: PAS IN 05:38 → CICU 2S 09:47 → PCU 3S 10-26 17:45
PROVIDERS: ADMIT Thoracic Surgery (Cardiothoracic Vascular Surgery); ATTEND Thoracic Surgery (Cardiothoracic Vascular Surgery)
PROC: 02100Z9 Bypass Coronary Artery, One Artery from Left Internal Mammary, Open Approach (ICD-10-PCS; 2024-10-24)
PROC: 021009W Bypass Coronary Artery, One Artery from Aorta with Autologous Venous Tissue, Open Approach (ICD-10-PCS; 2024-10-24)
PROC: 06BQ4ZZ Excision of Left Saphenous Vein, Percutaneous Endoscopic Approach (ICD-10-PCS; 2024-10-24)
PROC: 02H633Z Insertion of Infusion Device into Right Atrium, Percutaneous Approach (ICD-10-PCS; 2024-10-24)
PROC: B548ZZA Ultrasonography of Superior Vena Cava, Guidance (ICD-10-PCS; 2024-10-24)
PROC: 03HY32Z Insertion of Monitoring Device into Upper Artery, Percutaneous Approach (ICD-10-PCS; 2024-10-24)
PROC: B24BZZ4 Ultrasonography of Heart with Aorta, Transesophageal (ICD-10-PCS; 2024-10-24)
PROC: 02RF0JZ Replacement of Aortic Valve with Synthetic Substitute, Open Approach (ICD-10-PCS; principal; 2024-10-24 08:08)
DX: I35.0 Nonrheumatic aortic (valve) stenosis (principal); I25.10 Atherosclerotic heart disease of native coronary artery without angina pectoris; I10 Essential (primary) hypertension; E78.00 Pure hypercholesterolemia, unspecified; F41.9 Anxiety disorder, unspecified
CPT/HCPCS: 0232T; 93312; 93325; Z7506; Z7508; 36415; 36600; 71045; 71046; 71250; 76376; 80048; 80053; 81003; 82330; 82435; 82803; 82947; 82948; 83036; 83735; 84100; 84132; 84295; 85018; 85025; 85347; 85384; 85610; 85730; 86885; 86900; 86901; 86920; 87070; 87075; 87081; 93005; 93970; 94002; 94010; 94668; 94760; 97161; 97530; A4615; A4618; A6250; A6258; A6402; A6449; A7000; A7048; C1751; G0378; J0131; J0171; J0690; J1250; J1644; J1815; J2060; J2250; J2270; J2405; J2440; J2704; J2720; J2919; J3010; J3370; J3372; J3480; J3490; J7030; J7040; J7050; J7120; P9045; P9047

== ENCOUNTER 2024-11-01 09:15 | Outpatient (CLI) | payer BC ==
[~2024-11-01 09:15] MED LIST changes: +GABA-535 PO; +HYDR-3972 PO; -Insulin Reg/NS 100units/100mL 100 ML IV SCH; +WARF-65 PO; -dextrose 50%-water 50ml dispensing syringe IV PRN; -insulin glargine (Lantus) pen - multi-dose SQ PRN
[2024-11-01 10:00] LABS: PROTHROMBIN TIME 19.5 SECONDS (9.0-12.0)
== END 2024-11-01 23:59 | disposition home or self-care (01) ==
LOC: LAB 09:15
PROVIDERS: ATTEND Physician Assistant
DX: Z95.2 Presence of prosthetic heart valve (principal)
CPT/HCPCS: 36415; 85610

== ENCOUNTER 2024-11-25 09:44 | Outpatient (CLI) | payer BC ==
[2024-11-25 10:23] LABS: BASOPHILS % (AUTO) 1.1 % (0-1); EOSINOPHILS # (AUTO) 0.1 X10'3 (0-0.9); EOSINOPHILS % (AUTO) 2.1 % (0-6); HEMATOCRIT 39.8 % (42.0-52.0); HEMOGLOBIN 13.4 g/dl (14.0-17.9); LYMPHOCYTES # (AUTO) 0.9 X10'3 (1.1-4.8); LYMPHOCYTES % (AUTO) 21.9 % (21-51); MEAN CORPUSCULAR HEMOGLOBIN 29.6 PG (27.0-31.0); MEAN CORPUSCULAR HGB CONC 33.6 g/dL (33.0-36.5); MEAN CORPUSCULAR VOLUME 88.1 FL (78-98); MEAN PLATELET VOLUME 7.4 FL (7.4-10.4); MONOCYTES # (AUTO) 0.6 X10'3 (0-0.9); MONOCYTES % (AUTO) 13.4 % (2-12); NEUTROPHILS # (AUTO) 2.7 X10'3 (1.8-7.7); NEUTROPHILS % (AUTO) 61.5 % (42-75); PLATELET COUNT 185 X10'3 (140-440); RED BLOOD COUNT 4.52 X10'6 (4.70-6.10); RED CELL DISTRIBUTION WIDTH 14.6 % (11.5-14.5); WHITE BLOOD COUNT 4.3 X10'3 (4.5-11.0)
== END 2024-11-25 23:59 | disposition home or self-care (01) ==
LOC: LAB 09:44
PROVIDERS: ATTEND Nurse Practitioner
DX: I51.7 Cardiomegaly (principal); J18.9 Pneumonia, unspecified organism; R06.02 Shortness of breath; R07.89 Other chest pain
CPT/HCPCS: 36415; 71045; 85025

== ENCOUNTER 2025-05-20 22:22 | Emergency (ER) | payer BC ==
[~2025-05-20] VITALS: Ht 170.2 cm; Wt 88.6 kg
[2025-05-20 22:25] VITALS: BP 140/80; PULSE 72; RESP 16; O2SAT 99
--- NOTE | 2025-05-20 23:07 | RADIOLOGY REPORT ---
Procedure: DI TOE(S) 05/20/2025 10:37 PM TECHNIQUE: DI TOE(S) Indication: Right TOE PAIN Comparison: None FINDINGS/IMPRESSION: No acute displaced fracture. The alignment appears maintained. The soft tissues are unremarkable. If clinical symptoms persist, CT may be beneficial in further assessment.
--- NOTE | 2025-05-20 23:42 | Physician Documentation ---
History of Present Illness ~ Chief Complaint: Toe pain Stated Complaint: TOE PAIN Time Seen by MD: 22:36 HPI This is a 54-year-old male who presents with right 1st toe pain onset three days prior after dropping a bowling ball on the toe, patient reports a blood blister on the top of his toe that has been bleeding. Patient reports that he is on warfarin for mechanical heart valve. Patient reports no other acute symptoms or concerns. Tetanus witin 5 years: No Medication Reconciliation Allergies: Uncoded Allergies: ANETHESIS (Allergy, Unknown, 10/23/24) Scheduled Aspirin (Aspirin), 1 TAB PO DAILY, (Reported) Metoprolol Tartrate (Metoprolol Tartrate), 1 TAB PO BID, (Reported) Rosuvastatin Calcium (Rosuvastatin Calcium), 1 TAB PO QPM, (Reported) Warfarin Sodium (Warfarin Sodium), 1.5 TAB PO DAILY Scheduled PRN Gabapentin (Gabapentin), 1 CAP PO Q8H PRN for breakthrough pain Hydrocodone Bit/Acetaminophen (Hydrocodon-Acetaminophn 10-325 tablet), 1 TAB PO Q6H PRN for MODERATE PAIN 4-6 Past Medical History Past Medical History: Heart Valve Disease Review of Systems ROS As stated above in the HPI, otherwise all systems are reviewed and negative. Physical Exam Vital Signs: Temperature: 98.0, Source: Temporal, Heart Rate: 72, Respiratory Rate: 16, BP: 140/80, Pulse Oximetry: 99, Weight: 88.640 Oxygen Flow Rate: 0 Physical Exam VITALS: Reviewed and as above. GENERAL: Alert, nontoxic appearing, no apparent distress. RESPIRATORY: No increased work of breathing, no respiratory distress, speaking in full clear sentences MUSCULOSKELETAL: Subungual hematoma to right 1st toe, hemorrhagic blister to dorsal aspect of right 1st toe at proximal nail fold with small amount of oozing bleeding from lateral aspect, sensation intact, brisk capillary refill to tip of toe SKIN: Intact to remainder of right foot Procedures Nail Trephination Location: Right 1st toe Method of Drainage: 18 gauge needle, nail cauterized Sterile Dressing Applied?: Yes Finger Splint?: No Tolerated Procedure Well?: yes, no complications Procedure Note Nail trephinated and hemorrhagic blister drained without complication, patient tolerated procedure well. Progress Results/Orders Results/Orders Orders - IMANI COATES Ortho Orders (05/20/25 ) Dressing Orders (05/20/25 23:29) Laceration/I&D Tray Set Up (05/20/25 23:29) Vital Signs 05/20/25 05/21/25 22:25 00:44 Temp 98.0 98.0 Pulse 72 Resp 16 B/P (MAP) 140/80 Pulse Ox 99 O2 Flow Rate 0 EKG/XRAY/CT/US/VASC/MRI Bone/Soft Tissue X-Ray (Ext.) : Additional Comment Exam: TOE(S) Procedure: DI TOE(S) 05/20/2025 10:37 PM TECHNIQUE: DI TOE(S) Indication: Right TOE PAIN Comparison: None FINDINGS/IMPRESSION: No acute displaced fracture. The alignment appears maintained. The soft tissues are unremarkable. If clinical symptoms persist, CT may be beneficial in further assessment. Electronically Signed by:ALEXANDER BRIGGS MD Date & Time: 05/20/252304 Dictated by: ALEXANDER BRIGGS MD Dictation date and time: 05/20/252304 I have reviewed and agree with the radiology report. I have reviewed and interpreted the imaging as: No fracture or dislocation Medical Decision Making Findings This 54 year old male presented with right 1st toe pain after dropping a bowling ball on his toe. Physical exam demonstrated subungual hematoma to toenail and blood filled blister to posterior aspect of toe at the nail proximal nail fold, the toe was neurovascularly intact and ROM intact. Imaging did not demonstrate evidence of fracture or dislocation. Nail was trephinated and blood filled blister drained without complication, site was dressed with a pressure dressing. Remainder of exam was benign and patient appropriate for outpatient follow up. Patient discharged with home care instructions, follow up instructions, and return to care precautions which he verbalized understanding of. Toe Diff Dx:Considerations: Include: Abrasion, Cellulitis, Contusion, Dislocation, Fracture, Hematoma, Laceration, Neurovascular injury, Open fracture, Paronychia, Subungual hematoma Departure Time of Disposition: 00:29 Disposition: 01 HOME / SELF CARE / HOMELESS Impression: Primary Impression: Subungual hematoma of great toe of right foot Qualified Codes: S90.211A - Contusion of right great toe with damage to nail, initial encounter Condition: Improved Discharge Instructions: Subungual Hematoma Additional Instructions: Keep the area clean dry and covered, please use a pressure dressing on the wound with the supplies provided. You may use ibuprofen and or Tylenol as needed for pain. Watch for signs of infection such as increased redness, swelling, or purulent discharge from the wound, or if you develop a fever. Please return to the emergency department for signs of infection. Please follow up with your primary care provider in the next few days. Please return to the emergency department for any new or worsening concerning symptoms but not limited to signs of infection or uncontrolled bleeding. Referrals: NO PRIMARY CARE PROVIDER (PCP) Education Educated: Patient Educated regarding: diagnosis, treatment, prognosis, need for follow up Signature Scribe Signature: No Scribe Attestation: The note accurately reflects work and decisions made by me.KASSIDY Chin 05/21/25 12:28 IMANI COATES May 20, 2025 23:42
[2025-05-21 00:44] VITALS: TEMP 98
== END 2025-05-21 00:48 | disposition home or self-care (01) ==
LOC: ER 22:23
DX: S90.211A Contusion of right great toe with damage to nail, initial encounter (principal); Z95.2 Presence of prosthetic heart valve; Z79.01 Long term (current) use of anticoagulants; Z79.82 Long term (current) use of aspirin; Z79.899 Other long term (current) drug therapy; X58.XXXA Exposure to other specified factors, initial encounter; Y93.89 Activity, other specified; Y92.89 Other specified places as the place of occurrence of the external cause; Y99.8 Other external cause status
CPT/HCPCS: 11740; 73660; 99284; A6258